=== PATIENT | female | born 1990 | race Caucasian/White ===

== ENCOUNTER → 2025-03-19 14:19 | Outpatient (REF) | payer OTHER, SELFPAY | LOC: HWRAD 14:19 | PROVIDERS: ATTENDING PHYSICIAN Nurse Practitioner Adult Health | DX: R59.0 Localized enlarged lymph nodes (principal); R61 Generalized hyperhidrosis; R53.82 Chronic fatigue, unspecified; R35.0 Frequency of micturition | CPT/HCPCS: 76882 ==